=== PATIENT | female | born 1985 | race Caucasian/White ===

== ENCOUNTER 2021-03-17 10:57 | Inpatient (IN) | payer OTHER, SELFPAY ==
[~2021-03-17] VITALS: Ht 162.6 cm; Wt 83.9 kg
[2021-03-17] MEDS ORDERED: LACTATED RINGERS 500 ML IV SCH (11:30)
[2021-03-17] MEDS ORDERED: LACTATED RINGERS 1,000 ML IV SCH (11:30)
[2021-03-17 11:53] LABS: BASOPHILS % (AUTO) 0.3 % (0.0-2.0); EOSINOPHILS # (AUTO) 0.1 K/uL (0-0.4); HEMATOCRIT 37.9 % (36-48); HEMOGLOBIN 12.5 g/dL (12.0-16.0); LYMPHOCYTES # (AUTO) 2.2 K/uL (2.5-16.5); LYMPHOCYTES % (AUTO) 24.7 % (20.5-51.1); MEAN CORPUSCULAR HEMOGLOBIN 29 pg (27-31); MEAN CORPUSCULAR HGB CONC 33 g/dL (33-37); MEAN CORPUSCULAR VOLUME 88.2 fL (80-94); MONOCYTES # (AUTO) 0.9 K/uL (0.8-1.0); MONOCYTES % (AUTO) 10.1 % (1.7-9.3); NEUTROPHILS # (AUTO) 5.7 K/uL (1.8-7.7); NEUTROPHILS % (AUTO) 63.9 % (42.2-75.2); PLATELET COUNT (AUTO) 226 K/uL (140-450); RED CELL DISTRIBUTION WIDTH 15.7 % (11.6-13.7); WHITE BLOOD COUNT (AUTO) 8.9 K/uL (4.8-10.8)
[2021-03-17 12:06] LABS: ALBUMIN 2.8 g/dL (3.4-5.0); ANION GAP 14.4 (8-16); CARBON DIOXIDE 22.7 mmol/L (21-32); CREATININE 0.5 mg/dL (0.6-1.3); POTASSIUM 4.1 mmol/L (3.5-5.1); TOTAL BILIRUBIN 0.3 mg/dL (0.0-1.0)
[2021-03-17 12:08] LABS: BILIRUBIN,URINE NEGATIVE (NEGATIVE); BLOOD, URINE NEGATIVE (NEGATIVE); COLOR,URINE YELLOW (YELLOW); LEUKOCYTE ESTERASE ,URINE TRACE (NEGATIVE); NITRITE, URINE NEGATIVE (NEGATIVE); UGLUCOSE NEGATIVE (NEGATIVE)
[2021-03-17 12:15] VITALS: BP 132/67
[2021-03-17 12:15] LABS: RBC,URINE 0-5 /HPF (0-5); WBC,URINE 0-5 /HPF (0-5)
[2021-03-17 12:16] LABS: APPEARANCE,URINE SLIGHTLY HAZY (CLEAR)
[2021-03-17] MEDS ORDERED: MORPHINE PRES FREE 10 MG/10 ML AMP IV ONE ×2 (12:17→14:10)
[2021-03-17] MEDS ORDERED: MIDAZOLAM 2 MG/2 ML VIAL ONE ×2 (12:17→14:10)
[2021-03-17] MEDS ORDERED: ceFAZolin 1,000 MG VIAL IVP ONE (12:45)
[2021-03-17] MEDS ORDERED: OXYTOCIN 20 UNITS in LACTATED RINGERS 1,000 ML IV SCH (13:15)
[2021-03-17] MEDS ORDERED: NALOXONE 0.4 MG/ML VIAL IVP PRN ×3 (13:15)
[2021-03-17] MEDS ORDERED: diphenhydrAMINE 50 MG/ML VIAL IVP PRN ×2 (13:15)
[2021-03-17] MEDS ORDERED: ONDANSETRON 4 MG/2 ML VIAL IVP PRN ×2 (13:15)
[2021-03-17] MEDS ORDERED: HYDROmorphone 1 MG/ML AMP IVP PRN (13:15)
[2021-03-17] MEDS ORDERED: MEPERIDINE 25 MG/ML SYR IVP PRN (13:15)
[2021-03-17] MEDS ORDERED: METHYLERGONOVINE 0.2 MG/ML AMP IM PRN ×2 (13:50→14:10)
[2021-03-17] MEDS ORDERED: MEASLES, MUMPS, AND RUBELLA 1 VIAL SQVAC ONE (13:50)
[2021-03-17] MEDS ORDERED: PROMETHAZINE 25 MG/ML VIAL IVP PRN (13:50)
[2021-03-17] MEDS ORDERED: oxyCODONE/APAP 5/325 MG 1 TAB TAB PO PRN ×3 (13:50→14:10)
[2021-03-17] MEDS ORDERED: MEASLES, MUMPS, AND RUBELLA 1 VIAL SQVAC PRN (14:00)
[2021-03-17] MEDS ORDERED: ceFAZolin 1,000 MG VIAL ONE (14:10)
[2021-03-17] MEDS ORDERED: IBUPROFEN 600 MG TAB PO PRN (14:10)
[2021-03-17] MEDS ORDERED: OXYTOCIN 10 UNITS/ML VIAL ONE (14:10)
[2021-03-17] MEDS ORDERED: bisacodyL 5 MG TABEC PO PRN (14:10)
[2021-03-17] MEDS ORDERED: ONDANSETRON 4 MG/2 ML VIAL ONE (14:10)
[2021-03-17] MEDS ORDERED: OXYTOCIN 20 UNITS/LR PREMIX 1,000 ML IV ONE ×2 (14:49→23:09)
[2021-03-17] MEDS: KETOROLAC 30 MG/ML VIAL IM/IVP SCH (18:09)
[2021-03-17] MEDS: OXYTOCIN 20 UNITS in LACTATED RINGERS 1,000 ML IV SCH (23:15)
[2021-03-18] MEDS: KETOROLAC 30 MG/ML VIAL IM/IVP SCH ×2 (06:02)
[2021-03-18 06:05] LABS: BASOPHILS % (AUTO) 0.3 % (0.0-2.0); EOSINOPHILS % (AUTO) 0.4 % (0.0-4.0); LYMPHOCYTES # (AUTO) 1.9 K/uL (2.5-16.5); LYMPHOCYTES % (AUTO) 17.4 % (20.5-51.1); MEAN CORPUSCULAR HEMOGLOBIN 29 pg (27-31); MEAN CORPUSCULAR HGB CONC 33 g/dL (33-37); MEAN CORPUSCULAR VOLUME 87.9 fL (80-94); MONOCYTES # (AUTO) 0.8 K/uL (0.8-1.0); MONOCYTES % (AUTO) 7.2 % (1.7-9.3); NEUTROPHILS # (AUTO) 8.1 K/uL (1.8-7.7); NEUTROPHILS % (AUTO) 74.7 % (42.2-75.2); PLATELET COUNT (AUTO) 174 K/uL (140-450); RED BLOOD CELL COUNT(AUTO) 3.76 MIL/uL (4.20-5.40); RED CELL DISTRIBUTION WIDTH 15.8 % (11.6-13.7); WHITE BLOOD COUNT (AUTO) 10.9 K/uL (4.8-10.8)
--- NOTE | 2021-03-18 06:58 | NUR ---
PATIENT HAS BEEN SCREENED AND CATEGORIZED LOW NUTRITION RISK. PATIENT WILL BE SEEN WITHIN 7 DAYS OF ADMISSION. 03/24/21 JOSE MA MS, RDN
[2021-03-18] MEDS ORDERED: OXYTOCIN 20 UNITS/LR PREMIX 1,000 ML IV ONE (07:12)
[2021-03-18] MEDS: OXYTOCIN 20 UNITS in LACTATED RINGERS 1,000 ML IV SCH (07:17)
[2021-03-18] MEDS: bisacodyL 10 MG SUPP RC SCH (09:00)
[2021-03-18] MEDS: SIMETHICONE 80 MG TAB.CHEW PO PRN ×2 (09:08→18:02)
[2021-03-18] MEDS: oxyCODONE/APAP 5/325 MG 1 TAB TAB PO PRN ×2 (15:19→20:27)
[2021-03-18] MEDS ORDERED: CAMERA MC ONE (19:58)
[2021-03-18] MEDS ORDERED: oxyCODONE/APAP 5/325 MG 1 TAB TAB PO SCH (21:12)
[2021-03-18] MEDS: IBUPROFEN 800 MG TAB PO SCH (23:59)
[2021-03-19] MEDS ORDERED: oxyCODONE/APAP 5/325 MG 1 TAB TAB PO SCH ×2 (01:00→07:00)
[2021-03-19] MEDS: IBUPROFEN 800 MG TAB PO SCH ×3 (05:54→18:35)
[2021-03-19] MEDS ORDERED: oxyCODONE/APAP 5/325 MG 1 TAB TAB PO PRN ×2 (12:05)
[2021-03-19] MEDS: SIMETHICONE 80 MG TAB.CHEW PO PRN (20:52)
[2021-03-20] MEDS: IBUPROFEN 800 MG TAB PO SCH ×2 (00:01→05:32)
[2021-03-20] MEDS ORDERED: CAMERA MC ONE (04:25)
[2021-03-20] MEDS: bisacodyL 10 MG SUPP RC SCH (09:15)
== END 2021-03-20 16:50 | disposition home or self-care (01) | DRG 787 ==
LOC: EDSTATUS 10:57 → MLD 11:16 → MFCC 15:15
PROVIDERS: ADMIT Obstetrics & Gynecology; ATTEND Obstetrics & Gynecology
PROC: 3E0234Z Introduction of Serum, Toxoid and Vaccine into Muscle, Percutaneous Approach (ICD-10-PCS; 2021-03-17)
PROC: 10D00Z1 Extraction of Products of Conception, Low, Open Approach (ICD-10-PCS; principal; 2021-03-17 14:00)
DX: O34.211 Maternal care for low transverse scar from previous cesarean delivery (principal); R71.0 Precipitous drop in hematocrit; Z3A.39 39 weeks gestation of pregnancy; Z37.0 Single live birth; O69.81X0 Labor and delivery complicated by cord around neck, without compression, not applicable or unspecified; Z23 Encounter for immunization; Z20.822 Contact with and (suspected) exposure to COVID-19
CPT/HCPCS: 36415; 51702; 80053; 81001; 85025; 86592; 86886; 86900; 86901; 87081; 87086; 90715; J0690; J1200; J1885; J2250; J2270; J2405; J2590; J7060; J7120; U0003